=== PATIENT | female | born 2005 | race Hispanic/Latino ===

== ENCOUNTER 2024-04-19 21:05 | Emergency (ER) | payer OTHER ==
[~2024-04-19] VITALS: Ht 154.9 cm; Wt 50.8 kg
[2024-04-19 21:05] VITALS: PULSE 94; RESP 18; TEMP 97.9; O2SAT 98
[2024-04-19] MEDS: ONDANSETRON HCL INJ 2MG/ML 2ML 2 MG/ML VIAL IV ONE (22:02)
[2024-04-19] MEDS: FAMOTIDINE 20 MG/2 ML VIAL IV ONE (22:02)
[2024-04-19] MEDS: KETOROLAC TROMETHAMINE 30 MG/ML VIAL IV STA (22:02)
[2024-04-19] MEDS: SODIUM CHLORIDE 0.9% 1000ML 1,000 ML IV STA (22:03)
[2024-04-19] MEDS ORDERED: FAMOTIDINE20 MG PO (23:34)
[2024-04-19] MEDS ORDERED: DICYCLOMINE HCL20 MG PO (23:34)
[2024-04-19] MEDS ORDERED: ONDANSETRON ODT4 MG PO (23:34)
[2024-04-20 00:22] VITALS: BP 121/62; PULSE 74; RESP 18; TEMP 98.3
== END 2024-04-19 23:37 | disposition home or self-care (01) ==
LOC: EDBD 21:37 → FSED 21:37
DX: R10.11 Right upper quadrant pain (principal); K52.9 Noninfective gastroenteritis and colitis, unspecified; R11.2 Nausea with vomiting, unspecified; F32.A Depression, unspecified
CPT/HCPCS: 76705; 80048; 80076; 81003; 81025; 99284; J1885; J2405; J7030